=== PATIENT | female | born 1975 | race Caucasian/White ===

== ENCOUNTER 2017-06-26 15:08 | Outpatient (CLI) | payer OTHER ==
--- NOTE | 2017-06-26 20:22 | RAD ---
CERVICAL SPINE 5 VIEWS: Date: 06/26/17 HISTORY: Cervical radiculopathy. Previous cervical fusion. COMPARISON: None. FINDINGS: There is anterior fusion plate with transvertebral body screw at C4, C5, and C6. No perihardware luce ncy. There is a prosthesis at C4-C5 and C5-C6 disc space. No prevertebral soft tissue swelling. Odontoid process is intact. Lateral masses of C1 and C2 articulate appropriately. On the AP projection, there is no malalignment. In the neutral position, there is no prevertebral soft tissue swelling. There is straightening of nor mal cervical lordosis. Upon extension and flexion, there is no abnormal translation of motion. IMPRESSION: Uncomplicated cervical fusion. POS: [facility]
--- NOTE | 2017-06-26 20:33 | CT ---
CT CERVICAL SPINE WITHOUT CONTRAST: Date: 06/26/17 HISTORY: Cervical radiculopathy. Neck pain. Bilateral arm pain. Previous cervical fusion. COMPARISON: None. TECHNIQUE: A cervical spine CT is performed without contrast. Reformatted images are submitted for interpretatio n. FINDINGS: There is an anterior fusion plate with transvertebral body screw at C4, C5, and C6. No perihardware l ucency. Disc prosthesis at C4-C5 and C5-C6 disc spaces. There is no prevertebral soft tissue swelling No epidural hematoma. Visualized soft tissue neck structures are unremarkable. Upper mediastinum is unremarkable. Lung apices are unremarkable. Limited evaluation of the contents of the spinal canal and neural foramina due to technique. C2-C3: No significant disc osteophyte complex. No significant central canal stenosis. Right neural foramen i s patent. Minimal left foraminal narrowing due to degenerative change of the uncovertebral joint. C3-C4: No significant disc osteophyte complex. No significant central canal stenosis. Right neural foramen is patent. Minimal left foraminal narrowing due to degenerative change of the uncovertebral joint. C4-C5: There is disc prosthesis. Broad based disc osteophyte ridge. No significant central canal stenosis. R ight neural foramen is patent. Minimal left foraminal narrowing due to degenerative change of the unc overtebral joint. C5-C6: Broad based disc osteophyte ridge with a central component. There is mass effect and deformity of the central cord. Mild to moderate central canal stenosis. Degenerative changes of bilateral uncovertebr al joints result in moderate bilateral foraminal narrowing. C6-C7: No significant disc osteophyte complex. No significant central canal stenosis. Foramina are patent. C7-T1: No significant disc osteophyte complex. No significant central canal stenosis. Foramina are patent. IMPRESSION: Degenerative changes of the cervical spine. POS: [facility]
== END 2017-06-26 15:09 | disposition home or self-care (01) ==
LOC: TBSIIMAG 15:08
PROVIDERS: ATTEND Physician Assistant Surgical
DX: M47.22 Other spondylosis with radiculopathy, cervical region (principal); Z98.1 Arthrodesis status
CPT/HCPCS: 72050; 72125

== ENCOUNTER 2020-09-30 06:27 | Emergency (ER) | payer OTHER, SELFPAY ==
[2020-09-30] MEDS ORDERED: Metoclopramide HCl 10 MG/2 ML VIAL ONE (06:39)
[2020-09-30] MEDS ORDERED: Ketorolac Tromethamine 30 MG/ML VIAL ONE (06:39)
[2020-09-30] MEDS ORDERED: diphenhydrAMINE 50 MG/ML VIAL ONE (06:39)
[2020-09-30] MEDS ORDERED: Ondansetron PF 4 MG/2 ML Vial ONE (06:42)
== END 2020-09-30 08:02 | disposition home or self-care (01) ==
LOC: ERS 06:27
DX: R51.9 Headache, unspecified (principal); R11.2 Nausea with vomiting, unspecified; M54.2 Cervicalgia; H53.149 Visual discomfort, unspecified; F17.210 Nicotine dependence, cigarettes, uncomplicated
CPT/HCPCS: 96365; 96375; J1200; J1885; J2405; J2765